=== PATIENT | female | born 1975 | race Caucasian/White ===

== ENCOUNTER 2016-11-15 18:00 | Emergency (ER) | payer BC, OTHER ==
[2016-11-15] MEDS ORDERED: CEPHALEXIN 250 MG CAPSULE PO STA (18:52)
[2016-11-15] MEDS ORDERED: CEPHALEXIN 250 MG CAPSULE PO ONE (18:54)
--- NOTE | 2016-11-15 19:05 | ED Physician Documentation ---
PD HPI SKIN - Stated complaint Stated Complaint: L FINGER WOUND - Chief complaint Chief Complaint: Wound - History obtained from History obtained from: Patient - History of Present Illness Timing - details: Gradual onset Quality / character: Painful, Discolored, Swelling Similar symptoms before: Has not had sx before - Additional information Additional information: The patient is a 41-year-old [id number] female who presents with pain and swelling of her left index finger at the radial side of the fingernail. It has gotten gradually worse over the past several days. She denies any specific injury. Her past medical history is significant for MRSA. Review of Systems Constitutional: denies: Fever Nose: denies: Congestion Throat: denies: Sore throat Respiratory: denies: Cough GI: denies: Nausea, Vomiting Skin: reports: Other (Abscess left index finger). denies: Rash Musculoskeletal: denies: Back pain Neurologic: denies: Headache PD PAST MEDICAL HISTORY - Past Medical History Cardiovascular: None Respiratory: None Neuro: None Endocrine/Autoimmune: None Other Past Medical History: History of MRSA - Present Medications Home Medications: Ambulatory Orders Medication Instructions Recorded Confirmed Sulfamethox/Trimeth 800/160 1 each PO BID #14 tablet 11/15/16 [Bactrim Ds 800/160] - Allergies Allergies/Adverse Reactions: Allergies Allergy/AdvReac Type Severity Reaction Status Date / Time No Known Drug Allergies Allergy Verified 11/15/16 18:38 PD ED PE NORMAL - Vitals Vital signs reviewed: Yes (normal) - General General: Alert and oriented X 3, Well developed/nourished - Respiratory Respiratory: No respiratory distress - Derm Derm: No rash - Extremities Extremities: Other (There is a small abscess at the radial side of the left index fingernail, consistent with paronychia. There is mild erythema proximal to the abscess, but no lymphangitic streaking. Distal neurovascular is intact.) - Neuro Neuro: Alert and oriented X 3, No motor deficit, Normal speech Results - Vitals Vitals: Oxygen O2 Source Room air Procedures - Abscess I&D (location) left index finger Preparation: Alcohol Incision: Incised with scalpel, Purulent drainage Other: Pt tolerated well, Dressing applied, Antibiotic prescribed PD MEDICAL DECISION MAKING - ED course Complexity details: re-evaluated patient, considered differential, d/w patient, d/w family ED course: The patient's presentation is significant for paronychia of the left index finger. Treatment in the emergency department included drainage of the abscess , administration of cephalexin 500 mg orally, and Bactrim DS 1 tablet orally. She is being discharged with prescription for Bactrim DS. I discussed with her and her family the expected course of illness, antibiotic treatment and outpatient follow-up, as well as potentially worrisome signs or symptoms that should prompt reevaluation in the emergency department. Departure - Departure Disposition: 01 Home, Self Care Clinical Impression: Paronychia of finger Qualifiers: Laterality: left Qualified Code(s): L03.012 - Cellulitis of left finger Condition: Stable Instructions: ED Fingernail Infec Follow-Up: Deisy Andersen PA [Primary Care Provider] - Prescriptions: Sulfamethox/Trimeth 800/160 [Bactrim Ds 800/160] 1 each PO BID #14 tablet Comments: 1. Soak your right index finger in warm water or warm pack to her 3 times daily for the next 2 days. 2. Take Bactrim DS twice daily as prescribed. Eat probiotic yogurt while on antibiotic therapy. 3. You can use ibuprofen or Tylenol if needed for discomfort. 4. Follow-up with your primary physician within 2 weeks. Call to schedule an appointment. 5. Return to the emergency department if you develop increasing redness, swelling, pain, or otherwise worsening symptoms. Discharge Date/Time: 11/15/16 19:17
[2016-11-15] MEDS ORDERED: SULFAMETH/TRIMETH DS 800/160 MG TABLET PO STA (19:10)
[2016-11-15] MEDS ORDERED: SULFAMETH/TRIMETH DS 800/160 MG TABLET PO ONE (19:13)
[2016-11-15 19:18] VITALS: BP 114/86
== END 2016-11-15 19:17 | disposition home or self-care (01) ==
LOC: ED 18:00
DX: L03.012 Cellulitis of left finger (principal); Z86.14 Personal history of Methicillin resistant Staphylococcus aureus infection
CPT/HCPCS: 26010; 99283; A9270

== ENCOUNTER 2021-11-26 13:24 | Outpatient (CLI) | payer OTHER ==
[2021-11-26 19:55] LABS: BASOPHILS % (AUTO) 0.2 %; EOSINOPHILS # (AUTO) 0.2 10^3/uL (0.0-0.7); EOSINOPHILS % (AUTO) 1.5 %; HCT - HEMATOCRIT 45.2 % (37.0-47.0); HGB - HEMOGLOBIN 15.2 g/dL (12.0-16.0); LYMPHOCYTES # (AUTO) 2.5 10^3/uL (1.5-3.5); LYMPHOCYTES % (AUTO) 24.5 %; MEAN CORPUSCULAR HEMOGLOBIN 29.7 pg (27.0-31.0); MEAN CORPUSCULAR HGB CONC 33.6 g/dL (32.0-36.0); MEAN CORPUSCULAR VOLUME 88.3 fL (81.0-99.0); MONOCYTES # (AUTO) 0.7 10^3/uL (0.0-1.0); MONOCYTES % (AUTO) 6.7 %; NEUTROPHILS # (AUTO) 6.7 10^3/uL (1.5-6.6); NEUTROPHILS % (AUTO) 66.8 %; PLT - PLATELET COUNT 362 10^3/uL (130-450); RED BLOOD COUNT 5.12 10^6/uL (4.20-5.40); RED CELL DISTRIBUTION WIDTH 12.2 % (12.0-15.0); WHITE BLOOD COUNT 10.1 x10^3/uL (4.8-10.8)
[2021-11-26 20:01] LABS: ALBUMIN 3.7 g/dL (3.2-5.5); ALBUMIN/GLOBULIN RATIO 1.1 (1.0-2.2); BILIRUBIN,TOTAL 1.3 mg/dL (0.2-1.0); CREATININE 0.7 mg/dL (0.4-1.0); POTASSIUM 3.9 mmol/L (3.5-5.0); TOTAL PROTEIN 7.1 g/dL (6.7-8.2)
[2021-11-26 20:15] LABS: T4 (THYROXINE) 7.3 ug/dL (6.09-12.23)
[2021-11-26 20:17] LABS: THYROID STIMULATING HORMONE 2.05 uIU/mL (0.34-5.60)
[2021-11-26 20:20] LABS: FREE T3 3.34 pg/mL (2.5-3.9)
[2021-11-26 20:46] LABS: FOLLICLE STIMULATING HORMONE 3.38 mIU/mL
[2021-11-28 05:10] LABS: ESTRADIOL 72.2 pg/mL (.)
== END 2021-11-26 13:25 | disposition home or self-care (01) ==
LOC: LAB.S 13:24
DX: N95.1 Menopausal and female climacteric states (principal); Z73.0 Burn-out; R68.82 Decreased libido
CPT/HCPCS: 36415; 80053; 82306; 82607; 82670; 83001; 84403; 84436; 84443; 84481; 85025; 86376